=== PATIENT | female | born 1990 | race African-American/Black ===

== ENCOUNTER 2017-08-05 15:00 | Emergency (ER) | payer MEDICAID ==
--- NOTE | 2017-08-05 15:58 | ER Document Report ---
ED Psych Disorder / Suicide - General Information source: Patient TRAVEL OUTSIDE OF THE U.S. IN LAST 30 DAYS: No - HPI Patient complains to provider of: Other - See above Onset: Other - See above Onset was: Gradual Quality of pain: Other - See above Severity: Mild Pain Level: 1 Suicide Risk Factors: Other - See above Situational problems related to: Other - See above Normal mood: No Associated symptoms: Other - Tearful Similar symptoms previously: No Recently seen / treated by doctor: No - General Chief Complaint: Psych Problem Stated Complaint: PSYCH EVAL Time Seen by Provider: 08/05/17 15:52 Notes: 27-year-old female with past medical history of some post traumatic stress disorder who supposedly has felt overwhelmed when her recently informed around 2 weeks ago that he was desiring a separation. Patient supposedly was packing his bag over the last 24 hours and this made the patient feel very sad and had thoughts of "hurting myself". Patient states that those were transient. She denies any suicidal ideations at this time. She denies any auditory or visual hallucinations. She denies any pain to any other location. Patient states she has never had a diagnosis of depression. She has never been hospitalized for depression. Mom Does Live Close in [place] but is currently on vacation in [place]. Patient has a 2-month-old child at bedside. Patient states she was not depressed after the baby was born until her ' s decision. Patient states she has never had any thoughts of harming her children. Patient states she is here to obtain a "long-term outpatient plan". Patient states she feels very safe going home at this time. (LEONARD RAMIREZ) Past Medical History - General Information source: Patient - Social History Smoking Status: Unknown if Ever Smoked Cigarette use (# per day): No Chew tobacco use (# tins/day): No Smoking Education Provided: No Frequency of alcohol use: None Drug Abuse: None Family History: Reviewed & Not Pertinent Patient has suicidal ideation: Yes Patient has homicidal ideation: No Renal/ Medical History: Denies: Hx Peritoneal Dialysis Psychiatric Medical History: Reports: Hx Depression Review of Systems - Review of Systems Constitutional: denies: Fever EENT: denies: Eye discharge, Nose discharge Cardiovascular: denies: Chest pain, Palpitations, Lightheaded Respiratory: denies: Short of breath Gastrointestinal: denies: Vomiting Genitourinary: denies: Dysuria Musculoskeletal: denies: Leg swelling Skin: Other - no hives. denies: Rash Neurological/Psychological: Other - no slurred speech -: Yes All other systems reviewed and negative Physical Exam - Vital signs Vitals: Temp Pulse Resp BP Pulse Ox 98.5 F 85 20 121/57 L 98 08/05/17 15:13 08/05/17 15:13 08/05/17 15:13 08/05/17 15:13 08/05/17 15:13 Notes: Reviewed vital signs and nursing note as charted by RN. CONSTITUTIONAL: Alert and oriented and responds appropriately to questions. Well -appearing; well-nourished HEAD: Normocephalic; atraumatic EYES: PERRL ENT: Normal nose; no rhinorrhea NECK: Supple without meningismus; non-tender; no cervical lymphadenopathy, no masses CARD: Regular rate and rhythm; no murmurs, no clicks, no rubs, no gallops; symmetric distal pulses RESP: Normal chest excursion without splinting or tachypnea; breath sounds clear and equal bilaterally ABD/GI: Normal bowel sounds; non-distended; soft, non-tender BACK: The back appears normal and is non-tender to palpation, there is no CVA tenderness EXT: Normal ROM in all joints; non-tender to palpation; no cyanosis, no effusions, no edema SKIN: No acute lesions noted NEURO: Moves all extremities equally; Motor and sensory function intact PSYCH: The patient's mood and manner are appropriate. Grooming and personal hygiene are appropriate. (LEONARD RAMIREZ) Course - Re-evaluation Re-evalutation: 08/05/17 15:57 Given the above history and physical examination, we will have laboratory values ordered and have the psychology team see and evaluate the patient. Patient is breast-feeding and currently has her 2 months of age in the room. We have placed a sitter right outside the door for constant evaluation until psychiatry sees the patient. EKG shows a heart rate of 78, normal sinus rhythm, narrow QRS, no obvious ST elevation or depression. 08/05/17 16:37 Psychiatry is seen and evaluated the patient. They do not believe that the patient is a threat to herself or her offspring at this time. The twin sister Vickie is able to picker and sorter load and unload the patient from the emergency department and states that she is able to have the patient stay at her house. The psychology team states that they have [facility] for follow-up appointment. They have also provided information for the health department for parents with children between 0 and 5 years old. Patient is very comfortable with this plan. Twin sister was very comfortable with this plan. Patient promises to return if she has any more thoughts of injuring herself or feels worse in any way. (LEONARD RAMIREZ) - Vital Signs Vital signs: Temp Pulse Resp BP Pulse Ox 98.5 F 85 20 121/57 L 98 08/05/17 15:13 08/05/17 15:13 08/05/17 15:13 08/05/17 15:13 08/05/17 15:13 Discharge - Discharge Clinical Impression: Depression, Suicidal ideation Condition: Stable Disposition: HOME, SELF-CARE Additional Instructions: DEPRESSION: Your evaluation reveals that you have mental depression. While symptoms may be vague, they often include disturbance of sleep, fatigue, loss of appetite , and general loss of interest in life. While depression may be a side effect of drugs, or a reaction to a major change in your life, many cases have no known cause. If depression is acute, and related to a major loss in your life, you can expect it to clear completely with time. If you have been depressed a long time , are prone to repeated bouts of depression or low mood, or have been thinking of suicide, get help. Depression can be treated with anti-depressant medication and counselling. Long-term depression will often take a few weeks to clear, even with appropriate medication. Follow-up care is important. SUICIDAL IDEATION: Suicidal ideation is a common medical term for thoughts about suicide, which may be as detailed as a formulated plan, without the suicidal act itself. Although most people who undergo suicidal ideation do not commit suicide, some go on to make suicide attempts. The range of suicidal ideation varies greatly from fleeting to detailed planning, role playing, and unsuccessful attempts. While thoughts about suicide are common, most people do not carry out serious actions to commit suicide. Based upon your evaluation and discussion with you, we do not believe you are currently at risk to act upon your thoughts of suicide. You have agreed to return to the Emergency Department, at any time , if you feel inclined to act upon your suicidal thoughts. FOLLOW-UP CARE: You have been provided outpatient resource information which includes contact information for [facility] for individual therapy and for the [facility] ([facility]. The [facility] team will arrange appointment for both oif these places tomorrow during business hours and then call you with the appointment dates and times. If you experience worsening or a significant change in your symptoms, notify the physician immediately, utilize either mobile crisis number or return to the Emergency Department at any time for re- evaluation. Referrals: LIZ BENDER MD [Primary Care Provider] - Follow up as needed [facility] [Outside] - Follow up as needed
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
[2017-08-05 17:23] LABS: ABSOLUTE LYMPHOCYTES (AUTO) 1.4 10^3/uL (0.5-4.7); ABSOLUTE MONOCYTES (AUTO) 0.5 10^3/uL (0.1-1.4); ABSOLUTE NEUT (AUTO) 5.6 10^3/uL (1.7-8.2); BASOPHILS % (AUTO) 0.5 % (0-2); EOSINOPHILS % (AUTO) 0.3 % (0-6); HEMATOCRIT 37.5 % (36.0-47.0); HEMOGLOBIN 12.3 g/dL (12.0-15.5); HGB HCT DIFFERENCE -0.6; LYMPHOCYTES % (AUTO) 18.9 % (13-45); MEAN CORPUSCULAR HEMOGLOBIN 26.5 pg (27.0-33.4); MEAN CORPUSCULAR HGB CONC 32.9 g/dL (32.0-36.0); MEAN CORPUSCULAR VOLUME 80 fl (80-97); MONOCYTES % (AUTO) 6.6 % (3-13); RED BLOOD COUNT 4.67 10^6/uL (3.72-5.28); RED CELL DISTRIBUTION WIDTH 17.5 % (11.5-14.0); SEGMENTED NEUTROPHILS % (AUTO) 73.7 % (42-78); WHITE BLOOD COUNT 7.6 10^3/uL (4.0-10.5)
[2017-08-05 17:34] LABS: ALANINE AMINOTRANSFERASE 40 U/L (9-52); ALBUMIN 4.3 g/dL (3.5-5.0); ALKALINE PHOSPHATASE 107 U/L (38-126); ANION GAP 16 (5-19); ASPARTATE AMINO TRANSFERASE 26 U/L (14-36); BILIRUBIN,DIRECT 0.5 mg/dL (0.0-0.4); BILIRUBIN,TOTAL 0.6 mg/dL (0.2-1.3); BLOOD UREA NITROGEN 16 mg/dL (7-20); CARBON DIOXIDE 21 mmol/L (22-30); CHLORIDE 104 mmol/L (98-107); CREATININE RESULT 1.01 mg/dL (0.52-1.25); GLUCOSE 77 mg/dL (75-110); POTASSIUM 4.2 mmol/L (3.6-5.0); SODIUM 141.4 mmol/L (137-145); TOTAL PROTEIN 7.9 g/dL (6.3-8.2)
[2017-08-05 17:41] LABS: URINE BARBITURATES SCREEN NEGATIVE; URINE METHADONE SCREEN NEGATIVE; URINE OPIATES LOW NEGATIVE; URINE PHENCYCLIDINE SCREEN NEGATIVE
[2017-08-05 17:54] VITALS: BP 137/64
--- NOTE | 2017-08-06 03:07 | EKG REPORT ---
SEVERITY:- NORMAL ECG - SINUS RHYTHM : Confirmed by: Giuliano Parks 06-Aug-2017 03:06:40
== END 2017-08-05 17:54 | disposition home or self-care (01) ==
LOC: ER 15:00
DX: F32.9 Major depressive disorder, single episode, unspecified (principal); R45.851 Suicidal ideations; Z63.5 Disruption of family by separation and divorce
CPT/HCPCS: 36415; 80053; 80307; 85025; 93005; 93010; 99285

== ENCOUNTER 2017-09-04 09:00 | Emergency (ER) | payer OTHER, MEDICAID ==
[2017-09-04] MEDS ORDERED: IBUPROFEN 800 MG TABLET PO ONE (09:41)
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
[2017-09-04 11:24] VITALS: BP 124/65
== END 2017-09-04 11:24 | disposition home or self-care (01) ==
LOC: ER 09:00
DX: S16.1XXA Strain of muscle, fascia and tendon at neck level, initial encounter (principal); M54.2 Cervicalgia; V87.7XXA Person injured in collision between other specified motor vehicles (traffic), initial encounter; F17.200 Nicotine dependence, unspecified, uncomplicated
CPT/HCPCS: 72050; 99284

== ENCOUNTER 2017-11-12 22:33 | Emergency (ER) | payer MEDICAID, OTHER ==
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
[2017-11-13 01:08] VITALS: BP 115/63
--- NOTE | 2017-11-13 09:36 | EKG REPORT ---
SEVERITY:- BORDERLINE ECG - SINUS RHYTHM BORDERLINE T ABNORMALITIES, ANTERIOR LEADS : Confirmed by: Giuliano Parks 13-Nov-2017 09:35:00
== END 2017-11-13 01:16 | disposition home or self-care (01) ==
LOC: ER 22:33
DX: F44.5 Conversion disorder with seizures or convulsions (principal); R55 Syncope and collapse; F17.200 Nicotine dependence, unspecified, uncomplicated
CPT/HCPCS: 93005; 93010; 99284